=== PATIENT | female | born 1990 | race American Indian/Alaskan Native ===

== ENCOUNTER 2021-01-03 19:12 | Emergency (ER) | payer MEDICAID, OTHER ==
[2021-01-03 21:40] VITALS: BP 150/69
--- NOTE | 2021-01-03 22:02 | Emergency Department Report ---
ED Female HPI - General Chief complaint: Urogenital-Female Stated complaint: VAG DISCHARGE Time Seen by Provider: 01/03/21 21:55 Source: patient Mode of arrival: Ambulatory Limitations: No Limitations - History of Present Illness Initial comments: 30-year-old morbid obese -[place] female presents to the emergency room complaining of 2-day history of vaginal discharge with odor and vaginal sores. Patient states that she had unprotected sex 3 days ago and now is having discharge. She states her last menstrual period was 12/26/2020. States that she has bleeding from the sores around her vaginal area. She states there is pus coming from her vaginal area. MD Complaint: vaginal discharge, possible STD Onset/Timin -: days(s) Location: labia, perineum Severity scale (0 -10): 8 Quality: sharp, other (Burning) Consistency: constant Improves with: none Worsens with: urination Are you Now?: No Last Menstrual Period: 12/26/20 EDC: 10/02/21 Associated Symptoms: vaginal discharge, vaginal bleeding, dysuria - Related Data Sexually active: Yes (Recent unprotected intercourse) Home Medications Medication Instructions Recorded Confirmed Last Taken Vit-Fe Fumar-FA [ 1 each PO ONCE 06/27/13 06/27/13 Unknown Vitamin] Previous Rx's Medication Instructions Recorded Last Taken Type Cephalexin [Keflex] 1,000 mg PO BID #20 capsule 06/27/13 Unknown Rx Ondansetron [Zofran] 4 mg PO Q6HR PRN #10 tablet 06/27/13 Unknown Rx DOXYCYCLINE Hyclate [Vibramycin 100 mg PO Q12HR 10 Days #20 capsule 01/04/21 Unknown Rx CAP] Valacyclovir HCl [Valacyclovir] 1,000 mg PO QDAY 5 Days #5 tablet 01/04/21 Unknown Rx Allergies Allergy/AdvReac Type Severity Reaction Status Date / Time No Known Allergies Allergy Verified 01/03/21 21:40 ED Review of Systems ROS: Stated complaint: VAG DISCHARGE Other details as noted in HPI ED Past Medical Hx - Past Medical History Previous Medical History?: Yes Hx Headaches / Migraines: No Hx Asthma: Yes Additional medical history: vertigo - Surgical History Past Surgical History?: Yes Additional Surgical History: 3 C-SECTIONS, right Knee surgery - Social History Smoking Status: Current Every Day Smoker Substance Use Type: Alcohol - Medications Home Medications: Home Medications Medication Instructions Recorded Confirmed Last Taken Type Cephalexin [Keflex] 1,000 mg PO BID #20 capsule 06/27/13 Unknown Rx Ondansetron [Zofran] 4 mg PO Q6HR PRN #10 tablet 06/27/13 Unknown Rx Vit-Fe Fumar-FA [ 1 each PO ONCE 06/27/13 06/27/13 Unknown History Vitamin] DOXYCYCLINE Hyclate [Vibramycin 100 mg PO Q12HR 10 Days #20 capsule 01/04/21 Unknown Rx CAP] Valacyclovir HCl [Valacyclovir] 1,000 mg PO QDAY 5 Days #5 tablet 01/04/21 Unknown Rx ED Physical Exam - General Limitations: No Limitations General appearance: alert, in no apparent distress - Head Head exam: Present: atraumatic, normocephalic - Eye Eye exam: Present: normal appearance - ENT ENT exam: Present: mucous membranes moist - Neck Neck exam: Present: normal inspection - Respiratory Respiratory exam: Absent: accessory muscle use - Cardiovascular Cardiovascular Exam: Present: regular rate - GI/Abdominal GI/Abdominal exam: Present: soft. Absent: distended - External exam: Present: erythema, swelling, lesions Speculum exam: Present: normal speculum exam Bi-manual exam: Present: normal bi-manual exam - Extremities Exam Extremities exam: Present: normal inspection, full ROM - Back Exam Back exam: Present: normal inspection - Neurological Exam Neurological exam: Present: alert, oriented X3 - Psychiatric Psychiatric exam: Present: normal affect, normal mood - Skin Skin exam: Present: warm, dry, intact, normal color. Absent: rash ED Course Vital Signs 01/03/21 21:39 Temperature 98.2 F Pulse Rate 71 Respiratory 18 Rate Blood Pressure 150/69 O2 Sat by Pulse 100 Oximetry ED Medical Decision Making - Medical Decision Making 30-year-old morbid obese -[place] female presents to the emergency room complaining of 2-day history of vaginal discharge with odor and vaginal sores. Patient states that she had unprotected sex 3 days ago and now is having discharge. She states her last menstrual period was 12/26/2020. States that she has bleeding from the sores around her vaginal area. She states there is pus coming from her vaginal area. Urinalysis is nonactionable, wet prep within normal limits. Discussed with patient positive BV gonorrhea chlamydia or yeast infection or even herpes. Wet prep is negative. Patient is given a shot of Rocephin will be discharged on doxycycline 100 mg p.o. twice daily for 10 days and valacyclovir 1 g daily for the next 5 days. Critical care attestation.: If time is entered above; I have spent that time in minutes in the direct care of this critically ill patient, excluding procedure time. ED Disposition Clinical Impression: Concern about STD in female without diagnosis Herpes genitalia Qualifiers: Herpes simplex infection site: vulvovaginitis Qualified Code(s): A60.04 - He rpesviral vulvovaginitis Vaginitis Qualifiers: Chronicity: acute Qualified Code(s): N76.0 - Acute vaginitis Disposition: TO HOME OR SELFCARE Is pt being admited?: No Does the pt Need Aspirin: No Condition: Stable Instructions: Genital Herpes Additional Instructions: Wet prep is negative for any bacteria, trichomonas or yeast infection. Urinalysis is negative for urinary tract infection. You have been treated for gonorrhea and chlamydia as well as a prescription for herpes. It is very important for you to follow-up at the health department for full STD evaluation. This can also be done with [facility]. Prescriptions: Valacyclovir HCl [Valacyclovir] 1,000 mg PO QDAY 5 Days #5 tablet DOXYCYCLINE Hyclate [Vibramycin CAP] 100 mg PO Q12HR 10 Days #20 capsule Referrals: PRIMARY CARE [Primary Care Provider] - 3-5 Days [facility] [Outside] - 3-5 Days [facility] [Provider Group] - 3-5 Days [facility] [Provider Group] - 3-5 Days [facility] [Provider Group] - 3-5 Days Forms: Work/School Release Form(ED)
[2021-01-03 22:39] LABS: Bilirubin,Urine NEG (Negative); Blood,Urine NEG (Negative); Color,Urine Yellow (Yellow); Mucus,Urine FEW /HPF
[2021-01-04] MEDS ORDERED: LIDOCAINE-MPF (1%) 10 MG/1 ML VIAL 5 ML INFILTRATI ONE (00:15)
== END 2021-01-04 01:20 | disposition home or self-care (01) ==
LOC: ED 19:12
DX: N76.0 Acute vaginitis (principal); A60.00 Herpesviral infection of urogenital system, unspecified; J45.909 Unspecified asthma, uncomplicated; F17.200 Nicotine dependence, unspecified, uncomplicated; Z79.899 Other long term (current) drug therapy; Z20.2 Contact with and (suspected) exposure to infections with a predominantly sexual mode of transmission
CPT/HCPCS: 81001; 87210; 87591; 96372; 99284; J0696

== ENCOUNTER 2021-02-28 16:29 | Emergency (ER) | payer SELFPAY ==
--- NOTE | 2021-02-28 18:30 | Event Note ---
ED Screening Note ED Screening Note: 30 yo comes in with vag itching and concerns she is preg hx herpes, csec x3 and knee surgery rx: acyclovir did not do home preg test endorses lower abd pain This initial assessment/diagnostic orders/clinical plan/treatment(s) is/are subject to change based on patients health status, clinical progression and re- assessment by fellow clinical providers in the ED. Further treatment and workup at subsequent clinical providers discretion. Patient/guardian urged not to elope from the ED as their condition may be serious if not clinically assessed and managed. Initial orders include: ua preg reeval in ER
[2021-02-28 18:31] VITALS: BP 144/92
== END 2021-02-28 18:42 | disposition left against medical advice (07) ==
LOC: ED 16:29
DX: N93.9 Abnormal uterine and vaginal bleeding, unspecified (principal); Z53.21 Procedure and treatment not carried out due to patient leaving prior to being seen by health care provider